=== PATIENT | female | born 1985 | race Caucasian/White ===

== ENCOUNTER 2016-11-29 13:32 | Emergency (ER) | payer BC, OTHER ==
--- NOTE | 2016-11-29 14:42 | RAD ---
HISTORY: Fall on outstretched hand. Initial encounter. COMPARISON: None. TECHNIQUE: three view. Wrist Laterality:right FINDINGS: Bones: No fracture or dislocation. Joints: Normal Soft tissue: Normal IMPRESSION: No fracture or dislocation.
== END 2016-11-29 16:02 | disposition home or self-care (01) ==
LOC: ED 13:32
DX: S62.001A Unspecified fracture of navicular [scaphoid] bone of right wrist, initial encounter for closed fracture (principal); W18.30XA Fall on same level, unspecified, initial encounter; Y93.02 Activity, running; Y92.9 Unspecified place or not applicable